=== PATIENT | female | born 1940 | race Caucasian/White ===

== ENCOUNTER 2017-10-09 13:49 | Observation (INO) | payer MEDICARE ==
[2017-10-09 14:20] LABS: ABS Basophils 0.1 10^3/ul (0-0.2); ABS Eosinophils 0.1 10^3/ul (0-0.6); ABS Lymphocytes 1.5 10^3/ul (1.0-4.8); ABS Monocytes 0.5 10^3/ul (0-0.8); ABS Neutrophils 4.5 10^3/ul (1.5-7.7); ABS Nucleated RBC 0 10^3/ul; Hematocrit 41 % (35-47); Hemoglobin 13.8 g/dl (12.0-16.0); Mean Corpuscular HGB Conc 34 g/dl (31-36); Mean Corpuscular Hemoglobin 28 pg (27-31); Mean Corpuscular Volume 82 fL (80-97); Mean Platelet Volume 8.2 um3 (7.4-10.4); Nucleated Red Blood Cells % 0; Platelet Count 219 10^3/ul (150-450); Red Blood Count 4.95 10^6/ul (4.00-5.40); Red Cell Distribution Width 16 % (10.5-15); White Blood Count 6.8 10^3/ul (3.5-10.8)
[2017-10-09 14:39] LABS: EGFR Non-African American 69.4 (>60)
--- NOTE | 2017-10-09 14:55 | RAD ---
INDICATION: Chest pain. COMPARISON: There are no relevant prior studies available for comparison. TECHNIQUE: A portable view of the chest was obtained. FINDINGS: Cardiac and mediastinal contours appear to be within normal limits. There is minimal subsegmental atelectasis at the left lung base. The lungs are otherwise clear. No pleural effusion is seen. IMPRESSION: NO EVIDENCE FOR ACUTE DISEASE.
[2017-10-09] MEDS ORDERED: Nitroglycerin 2% OINT* 1 GM PAK TOPICAL ONE (15:00)
--- NOTE | 2017-10-09 15:22 | ED ---
HPI Chest Pain - HPI Summary HPI Summary: The patient is a 77 y/o F presenting to [facility] accompanied by and son with a chief complaint of sudden onset mid-sternal chest pain that started a few hours COMBINATION WELDER and lasted for almost two hours and radiated through her chest to her back. She was sitting down eating lunch when the aching pain that felt like "an elephant on her chest" started. The pain is currently rated 0/10 in severity. She denies cough and swelling in legs. She has had stress tests in the past but hasn't had one recently. FHx of cardiac disease in her father. No Fhx of aneurysms. - History of Current Complaint Chief Complaint: EDChestPainROMI Time Seen by Provider: 10/09/17 13:59 Hx Obtained From: Patient Onset/Duration: Started Hours Ago, Resolved Timing: Constant, Lasting Hours - approx 2 hours Initial Severity: Moderate Current Severity: None Pain Intensity: 0 Pain Scale Used: 0-10 Numeric Chest Pain Location: Mid Sternal Chest Pain Radiates: Yes Chest Pain Radiates To:: Back Aggravating Factor(s): Nothing Alleviating Factor(s): Nothing Associated Signs and Symptoms: Positive: Chest Pain - mid sternal radiating to back. Negative: Cough, Edema - Allergy/Home Medications Allergies/Adverse Reactions: Allergies Allergy/AdvReac Type Severity Reaction Status Date / Time ampicillin Allergy Mild Hives Verified 10/09/17 16:09 cephalexin [From Keflex] Allergy Mild Hives Verified 10/09/17 16:09 rofecoxib Allergy Mild Hives Verified 10/09/17 16:09 Home Medications: Home Medications Aspirin EC TAB* [Ecotrin EC Low Dose 81 MG*] 1 tab PO BEDTIME 10/09/17 [History Confirmed 10/09/17] Glucosamine Sulfate Dipot Chlr [Glucosamine] 1,500 mg PO DAILY 10/09/17 [ History Confirmed 10/09/17] Silver Sulfadiazine 1% 400gm* [SILVadine 1% 400 gm jar*] 3 g TOPICAL BID [History Confirmed 10/09/17] hydrOXYzine HCL TAB* [Atarax 25 MG TAB*] 12.5 mg PO BID 10/09/17 [History Confirmed 10/09/17] PMH/Surg Hx/FS Hx/Imm Hx Endocrine/Hematology History: Denies: Hx Diabetes Cardiovascular History: Denies: Hx Myocardial Infarction - Cancer History Hx Chemotherapy: No Hx Radiation Therapy: No Infectious Disease History: No Infectious Disease History: Denies: Traveled Outside the [place] in Last 30 Days - Family History Known Family History: Positive: Cardiac Disease - in father - Social History Alcohol Use: None Substance Use Type: Reports: None Smoking Status (MU): Former Smoker Review of Systems All Other Systems Reviewed And Are Negative: No - Comments Additional Review of Systems Comments: full ros not completed: patient in extremis/STEMI Physical Exam - Summary Physical Exam Summary: Constitutional: Well-developed, Well-nourished, Alert. (-) Distressed Skin: Warm, Dry HENT: Normocephalic; Atraumatic Eyes: Conjunctiva normal Neck: Musculoskeletal ROM normal neck. (-) JVD, (-) Stridor, (-) Tracheal deviation Cardio: Rhythm regular, rate normal, Heart sounds normal; Intact distal pulses; The pedal pulses are 2+ and symmetric. Radial pulses are 2+ and symmetric. (-) Murmur Pulmonary/Chest wall: Effort normal. (-) Respiratory distress, (-) Wheezes, (-) Rales Abd: Soft, (-) epigastric tenderness, (-) Distension, (-) Guarding, (-) Rebound Musculoskeletal: (-) Edema Lymph: (-) Cervical adenopathy Neuro: Alert, Oriented x3 Psych: Mood and affect Normal Triage Information Reviewed: Yes Vital Signs On Initial Exam: Initial Vitals Temp Pulse Resp BP Pulse Ox 98.7 F 73 19 168/115 92 10/09/17 13:57 10/09/17 13:57 10/09/17 13:57 10/09/17 13:57 10/09/17 13:57 Vital Signs Reviewed: Yes Diagnostics - Vital Signs Vital Signs Temp Pulse Resp BP Pulse Ox 10/09/17 14:29 70 25 166/111 96 10/09/17 13:57 98.7 F 73 19 168/115 92 - Laboratory Lab Results: Lab Results 10/09/17 10/09/17 10/09/17 Range/Units 14:09 14:09 14:09 WBC 6.8 (3.5-10.8) 10^3/ul RBC 4.95 (4.00-5.40) 10^6/ul Hgb 13.8 (12.0-16.0) g/dl Hct 41 (35-47) % MCV 82 (80-97) fL MCH 28 (27-31) pg MCHC 34 (31-36) g/dl RDW 16 H (10.5-15) % Plt Count 219 (150-450) 10^3/ul MPV 8.2 (7.4-10.4) um3 Neut % (Auto) 66.9 (38-83) % Lymph % (Auto) 22.0 L (25-47) % Dickson % (Auto) 8.0 H (0-7) % Eos % (Auto) 2.0 (0-6) % Baso % (Auto) 1.1 (0-2) % Absolute Neuts (auto) 4.5 (1.5-7.7) 10^3/ul Absolute Lymphs (auto) 1.5 (1.0-4.8) 10^3/ul Absolute Monos (auto) 0.5 (0-0.8) 10^3/ul Absolute Eos (auto) 0.1 (0-0.6) 10^3/ul Absolute Basos (auto) 0.1 (0-0.2) 10^3/ul Absolute Nucleated RBC 0 10^3/ul Nucleated RBC % 0 Sodium 133 L (135-145) mmol/L Potassium Pending Chloride 99 L (101-111) mmol/L Carbon Dioxide 26 (22-32) mmol/L Anion Gap Pending BUN 19 (6-24) mg/dL Creatinine 0.80 (0.51-0.95) mg/dL Est GFR ( Amer) 83.9 (>60) Est GFR (Non-Af Amer) 69.4 (>60) BUN/Creatinine Ratio 23.8 H (8-20) Glucose 111 H (70-100) mg/dL Lactic Acid 1.6 (0.5-2.0) mmol/L Calcium 9.5 (8.6-10.3) mg/dL Total Bilirubin 0.30 (0.2-1.0) mg/dL AST Pending ALT 11 (7-52) U/L Alkaline Phosphatase 87 (34-104) U/L Troponin I 0.00 (<0.04) ng/mL Total Protein 6.8 (6.4-8.9) g/dL Albumin 4.1 (3.2-5.2) g/dL Globulin 2.7 (2-4) g/dL Albumin/Globulin Ratio 1.5 (1-3) Result Diagrams: 10/09/17 14:09 10/09/17 14:09 Lab Statement: Any lab studies that have been ordered have been reviewed, and results considered in the medical decision making process. - Radiology CXR Xray Interpretation: No Acute Changes - No evidence for acute disease. ED physician has reviewed this report. Radiology Interpretation Completed By: Radiologist - CT Chest/Abd/Pel CTA CT Interpretation: No Acute Changes - No evidence of thoracic aortic dissection or thoracic or aortic aneurysm. Atherosclerotic aorta without evidence of aneurysmal dilatation. No definite evidence of pulmonary embolus is noted. ED physician has reviewed this report. CT Interpretation Completed By: Radiologist - EKG 14:09 Cardiac Rate: NL - 69 BPM EKG Rhythm: Sinus Rhythm EKG Interpretation: No STEMI. Re-Evaluation - Re-Evaluation First Eval Re-Evaluation Time: 17:00 Change: Unchanged Comment: I spoke with patient about lab and imaging results. She understands the need for admission and agrees with this plan. Chest Pain Course/Dx - Course Course Of Treatment: The patient is a 77 y/o F presenting to [facility] accompanied by and son with a chief complaint of sudden onset mid- sternal chest pain that started a few hours COMBINATION WELDER and lasted for almost two hours and radiated through her chest to her back. She was sitting down eating lunch when the aching pain that felt like "an elephant on her chest" started. The pain is currently rated 0/10 in severity. She denies cough and swelling in legs. She has had stress tests in the past but hasn't had one recently. FHx of cardiac disease in her father. No Fhx of aneurysms. Physical exam benign. In the ED course, the pt was administered NTG and Iohexol. Lab results are unremarkable. EMS EKG is normal. ED EKG is normal. Chest/Abd/Pel CTA shows negative findings. CXR reveals negative findings. Patient will be diagnosed with unspecified chest pain. Patient will be admitted to [facility] for further evaluation by Dr. Jimenez at 1745. Patient understands the need for admission and agrees to this plan. - Diagnoses Provider Diagnoses: Chest pain, unspecified - Provider Notifications Discussed Care Of Patient With: Anjel Jimenez Time Discussed With Above Provider: 17:45 Instructed by Provider To: Admit As Observation - Patient will be admitted to [facility] for further evaluation. Discharge - Sign-Out/Discharge Documenting (check all that apply): Patient Departure - Patient will be admitted to [facility] for further evaluation. - Discharge Plan Condition: Stable Disposition: ADMITTED TO [facility] - Billing Disposition and Condition Condition: STABLE Disposition: Admitted to [facility] - Attestation Statements Document Initiated by Scribe: Yes Documenting Scribe: Andreina Deleon Provider For Whom Scribe is Documenting (Include Credential): Jon Matute MD Scribe Attestation: Andreina Montaño, scribed for Jon Matute MD on 10/09/17 at 1840. Scribe Documentation Reviewed: Yes Provider Attestation: The documentation as recorded by the Andreina ahn accurately reflects the service I personally performed and the decisions made by me, Jon Matute MD
[2017-10-09] MEDS ORDERED: Iohexol 350* (CONTRAST) 500 ML MDV IV ONE (15:24)
--- NOTE | 2017-10-09 16:55 | RAD ---
Indication: Chest pain. Contrast:Administered 100.0 ml of OMNIPAQUE 350 mg/ml CTA of the chest, abdomen and pelvis was performed after IV contrast administration. Coronal and sagittal reconstructed images were obtained. The origins of the great vessels are unremarkable. Mild atherosclerosis of the aorta is noted. There is no aneurysmal dilatation of the aorta. No evidence of thoracic aortic dissection is noted. The pulmonary arterial tree demonstrates no filling defect to suggest pulmonary embolus. Minimal atherosclerosis is noted in the upper abdominal aorta. Celiac axis, superior mesenteric artery and bilateral renal arteries appear patent. Inferior mesenteric artery is patent. Mild atherosclerosis and minimal plaque is noted in the distal abdominal aorta. No evidence of aneurysmal dilatation of the abdominal aorta is noted. Common iliac and external iliac arteries are grossly unremarkable without evidence of aneurysmal dilatation. The thyroid demonstrates retrosternal component of the left lobe of the thyroid. Small 3 to 5 mm pretracheal and AP window lymph nodes are noted. The heart demonstrates no pericardial effusion. There are likely coronary artery calcifications noted. The axilla demonstrates no evidence of abnormal adenopathy. Bilateral breast implants are noted. The lung marte demonstrate emphysematous changes in the left apex. No evidence of alveolar consolidation is noted. Small nodule measuring 3 to 4 mm is noted in the inferior right upper lobe. This is likely not clinically significant. Scarring is noted in the anterior lingula. No pleural fluid is identified. The liver is normal in size. No focal lesions or intrahepatic duct dilatation is noted. Gallbladder demonstrates no calcified gallstones. Pancreas demonstrates no mass or pancreatic duct dilatation. Common duct is not dilated. The spleen is normal in size. No adrenal lesions are noted. The kidneys demonstrate symmetric nephrograms without hydronephrosis. CT of the pelvis demonstrates no pelvic adenopathy. No dilated loops of bowel are noted. The uterus and ovaries are unremarkable. The urinary bladder is unremarkable. Patient status post left hip replacement. Degenerative changes of the thoracic and lumbar spine are noted. IMPRESSION: No evidence of thoracic aortic dissection or thoracic or aortic aneurysm. Atherosclerotic aorta without evidence of aneurysmal dilatation. No definite evidence of pulmonary embolus is noted.
[2017-10-09] MEDS ORDERED: Al Hydrox/Mg Hydrox/Simet LIQ* 30 ML UDC PO PRN (18:05)
[2017-10-09] MEDS ORDERED: Magnesium Hydroxide LIQ* 30 ML UDC PO PRN (18:05)
[2017-10-09] MEDS ORDERED: Temazepam CAP* 15 MG PO PRN (18:05)
--- NOTE | 2017-10-09 20:03 | HP ---
CC: Dr. Sally Evans * HISTORY AND PHYSICAL: DATE OF ADMISSION: 10/09/17 PRIMARY CARE PROVIDER: Dr. Sally Evans. CHIEF COMPLAINT: Chest pain. HISTORY OF PRESENT ILLNESS: Milagros Alva is a 77-year-old female with history of TIA and hypertension, who presented to [facility] complaining of chest pain. The patient stated that chest pain occurred at around noon when she was eating a turkey sandwich. She stated that it was moderate in intensity , pressure that was substernal, radiating to the back, lasting approximately 1 hour. She denies any aggravating or alleviating factors. The pain resolved spontaneously. She denies any shortness of breath with it. Once again, there were no other symptoms. The patient stated that she never had a similar pain before. By the time she presented to the emergency department, the chest pain resolved. Her EKG was unremarkable and troponin negative. She was advised by the ED physician to stay overnight for a cardiac stress test, which is going to be performed in the morning. PAST MEDICAL HISTORY: 1. Status post left total hip replacement in April of 2017 at [facility]. 2. History of ulcerative colitis. 3. History of right oophorectomy for ovarian cyst in 1960s. 4. History of hospitalization for septic shock in 2009, at which time the patient had exploratory laparotomy and "lot of infected fluid was removed from her stomach." The patient stated that the source of sepsis was never found out. 5. History of hypertension. 6. History of TIA. MEDICATIONS: At home, include: 1. Hydroxyzine 12.5 mg b.i.d. 2. Metoprolol succinate 50 mg daily. 3. Hiprex 1 g daily. 4. Lisinopril 20 mg daily. 5. Prevacid SoluTab 15 mg daily. 6. Glucosamine 1500 mg daily. 7. Plavix 75 mg daily. 8. Aspirin 81 mg daily. 9. Elavil 25 mg at bedtime. ALLERGIES: KEFLEX, AMPICILLIN, and VIOXX. FAMILY HISTORY: Positive for both parents dying in their 90s. Father secondary to Parkinson's disease and he had history of DE earlier on in his life , but the patient does not remember exactly when. Mother at the age of 96 secondary to "old age." SOCIAL HISTORY: The patient is retired, lives with her who is her surrogate. She denies any alcohol or drug use. She had used tobacco many years ago, not a significant amount of years though. She ambulates without any support and she is fully independent. REVIEW OF SYSTEMS: Please see history of present illness. All the remaining 12 systems were reviewed with the patient and were otherwise negative. PHYSICAL EXAMINATION GENERAL: The patient is a very pleasant 77-year-old female, who is in no acute distress. Alert, awake, and oriented x3. VITAL SIGNS: Blood pressure of 135/91, heart rate of 75 and regular, respiratory rate 16, oxygen saturation 97% on room air, temperature of 98.7. HEENT: Head: Atraumatic, normocephalic. Eyes: Pupils are equal, reactive to light and accommodation. Oropharynx is clear. Mucosa moist. NECK: Supple. No JVD. No bruits bilaterally. RESPIRATORY: Clear to auscultation bilaterally. CARDIOVASCULAR: Regular rate and rhythm. No murmur. ABDOMEN: Soft, nontender. Bowel sounds are present in all 4 quadrants. EXTREMITIES: There is no edema. Pulses are +2 bilaterally. There is no clubbing or cyanosis. NEUROLOGIC: Speech is clear. Cranial nerves II through XII are grossly intact. Motor strength is 5/5 bilaterally. PSYCHIATRIC: Oriented x3 with no evidence of anxiety or depression. DIAGNOSTIC STUDIES/LAB DATA: Showed sodium of 133, potassium 4.2, chloride 99 , carbon dioxide 26, BUN 19, creatinine 0.8. Liver function tests unremarkable. Troponin of 0 twice already. White blood cell count of 6.8, hemoglobin of 13.8, hematocrit of 41, and platelets of 219. The patient's EKG showed normal sinus rhythm with no evidence of ST elevations. CT angiogram of chest, abdomen, and pelvis showed "no evidence of thoracic aortic dissection or thoracic aortic aneurysm. Atherosclerotic aorta without evidence of aneurysm or dilatation. No definite evidence of pulmonary embolus is noted." Furthermore, in the body of the report, it was noted that the patient has a small nodule measuring 3 to 4 mm in the inferior right upper lobe that was likely not clinically significant. ASSESSMENT AND PLAN: 1. Chest pain. So far, the patient's cardiac workup is unremarkable. The patient is going to be observed on telemetry monitored bed with a stress test in the morning if her troponins continued to be negative. I will also obtain EKG in the morning for followup. 2. For the patient's history of transient ischemic attack, aspirin and Plavix are going to be continued. 3. For history of hypertension, lisinopril and metoprolol are going to be continued. 4. For DVT prophylaxis, the patient is going to be placed on heparin subcutaneously. 5. The patient's code status is full. Her surrogate is her . TIME SPENT: Approximately 55 minutes was spent on admission of this patient, more than half of that time was spent [id number] with the patient during the interview and physical exam. [id number]/[facility] #: [id number] ARBEN
[2017-10-09] MEDS ORDERED: hydrOXYzine HCL TAB* 25 MG PO SCH (21:00)
[2017-10-09] MEDS ORDERED: Aspirin EC TAB* 81 MG TAB.EC PO SCH (21:00)
[2017-10-09] MEDS ORDERED: Amitriptyline TAB* 25 MG PO SCH (21:00)
[2017-10-09] MEDS: Heparin VIAL(*) 5000 UNITS/ML VIAL (FIVE THOUSAND) SUBCUT SCH (21:28)
[2017-10-10] MEDS ORDERED: Acetaminophen TAB* 325 MG PO PRN (01:02)
[2017-10-10] MEDS: Heparin VIAL(*) 5000 UNITS/ML VIAL (FIVE THOUSAND) SUBCUT SCH (05:20)
[2017-10-10 07:27] VITALS: BP 122/74
[2017-10-10] MEDS ORDERED: Methenamine Hippurate TAB* 1 GM TAB PO SCH (09:00)
[2017-10-10] MEDS ORDERED: Lisinopril TAB* 10 MG PO SCH (09:00)
[2017-10-10] MEDS ORDERED: Clopidogrel TAB* 75 MG PO SCH (09:00)
[2017-10-10] MEDS ORDERED: Lansoprazole susp Kit 3 MG/ML (15 MG = 5 ML) PO SCH (09:00)
--- NOTE | 2017-10-10 11:06 | RAD ---
HISTORY: CP chest pain COMPARISONS: None TECHNIQUE: A 1 day stress/rest myocardial perfusion study was performed, with exercise stress. The exercise portion was performed using the Venkatesh protocol, for a total METs of 4.6 . The stress portion was monitored by Dr. Jacinto. Gated SPECT imaging was performed, with CT-based attenuation correction DOSE: Stress: Technetium 99m tetrofosmin, 24.9 millicuries, injected at 9:50 AM on October 10, 2017 Rest: Technetium 99m tetrofosmin, 10.9 millicuries, injected at 7:00 AM on October 10, 2017 Pharmacologic agent: None FINDINGS: CARDIAC MONITORING: Peak heart rate of 149 bpm, 105% of predicted. EF: 96 % TID: 1.16 MOTION: Normal motion, with normal wall thickening. PERFUSION: There are no fixed or reversible perfusion defects. The small reversible defect along the base of the lateral wall is felt to be likely artifactual. OTHER: None IMPRESSION: NO DEFINITE FIXED OR REVERSIBLE PERFUSION DEFECT. ASSESSMENT: LOW RISK. Based on imaging criteria from ACC/AHA 2002. Guideline Update for the Management of Patient's with Chronic Stable Angina, table 23. Noninvasive Risk Stratification.
--- NOTE | 2017-10-11 01:18 | DS ---
CC: Dr. Evans * DISCHARGE SUMMARY: DATE OF ADMISSION: 10/09/17 DATE OF DISCHARGE: 10/10/17 PRIMARY CARE PROVIDER: Dr. Sally Evans. DISCHARGE DIAGNOSIS: Chest pain with low probability cardiac stress test documented on 10/10/17. MEDICATIONS AT DISCHARGE: Include: 1. Amitriptyline 25 mg at bedtime. 2. Aspirin 81 mg daily. 3. Plavix 75 mg daily. 4. Glucosamine 1500 mg daily. 5. Atarax 12.5 mg b.i.d. 6. Prevacid SoluTab 15 mg daily. 7. Lisinopril 20 mg daily. 8. Hiprex 1 g daily. 9. Metoprolol succinate 50 mg daily. LABORATORY DATA AND STUDIES PERFORMED DURING THE HOSPITAL STAY: Included: The patient's troponin continued to be 0 throughout the patient's hospital stay. The patient's nuclear cardiac stress test is documented on 10/10/17, impression : "Low risk. There was no definite or fixed reversible perfusion defect." The EF was noted to be 96%. There was small reversible defect around the base of the lateral wall that was felt to be likely artifactual. PHYSICAL EXAM AT DISCHARGE: Unchanged from admission. FOLLOWUP: At discharge, the patient is recommended to follow up with Dr. Evans in approximately 1 week. HOSPITALIZATION COURSE: Mrs. Alva is a 77-year-old female, who presented with substernal chest pain radiating to the back when she was eating a turkey sandwich. The pain lasted approximately 1 hour, was "pressure-like" and resolved spontaneously. She came into the ED for evaluation where her EKG was unremarkable and her troponins continued to be negative. A stress test performed the next day showed low probability for cardiac ischemia. The patient is going to be discharged home with recommendations to follow up as mentioned above. Please note that this is a short summary of the patient's hospital stay. Please refer to further medical records for details. [id number]/[facility] #: [id number] [facility]
== END 2017-10-10 13:30 | disposition home or self-care (01) ==
LOC: ED 13:49 → MEDTELE 18:23
PROVIDERS: ADMIT Internal Medicine; ATTEND Internal Medicine
DX: R07.9 Chest pain, unspecified (principal); Z87.891 Personal history of nicotine dependence; Z79.82 Long term (current) use of aspirin; Z96.642 Presence of left artificial hip joint; Z87.19 Personal history of other diseases of the digestive system; Z90.722 Acquired absence of ovaries, bilateral; I10 Essential (primary) hypertension; Z86.73 Personal history of transient ischemic attack (TIA), and cerebral infarction without residual deficits
CPT/HCPCS: 36415; 71045; 71275; 74174; 78452; 80053; 83605; 84484; 85025; 93005; 93017; 99284; A9270-GY; A9502; G0378; Q9967

== ENCOUNTER 2022-03-20 16:41 | Inpatient (IN) ==
[2022-03-20 18:47] LABS: ABS Basophils 0.1 10^3/ul (0-0.2); ABS Eosinophils 0.2 10^3/ul (0-0.6); ABS Lymphocytes 1.6 10^3/ul (1.0-4.8); ABS Monocytes 0.7 10^3/ul (0-0.8); ABS Neutrophils 4.1 10^3/ul (1.5-7.7); Eosinophil % 3.4 %; Hematocrit 39 % (35-47); Hemoglobin 12.3 g/dL (12.0-16.0); Mean Corpuscular HGB Conc 32 g/dL (31-36); Mean Corpuscular Hemoglobin 25 pg (27-31); Mean Corpuscular Volume 80 fL (80-97); Mean Platelet Volume 8.6 fL (7.4-10.4); Platelet Count 223 10^3/uL (150-450); Red Blood Count 4.86 10^6 /uL (3.70-4.87); Red Cell Distribution Width 16 % (10-15); White Blood Count 6.6 10^3/uL (3.5-10.8)
[2022-03-20 18:57] LABS: Activated Partial Thrombo Time 28.2 seconds (26.0-38.0); INR 1.05 (0.88-1.18)
[2022-03-20 19:04] LABS: Albumin 4.3 g/dL (3.2-5.2); Albumin/Globulin Ratio 1.8 (1-3); Calcium 9.8 mg/dL (8.6-10.3); Creatinine, Serum 0.7 mg/dL (0.51-0.95); Globulin 2.4 g/dL (2-4); Potassium 4.3 mmol/L (3.5-5.0); Total Bilirubin 0.4 mg/dL (0.2-1.0); Total Protein 6.7 g/dL (6.4-8.9); eGFR CKD-EPI 85.8 (>60)
[2022-03-20] MEDS ORDERED: Ondansetron 4 mg VIAL 2 MG/ML 2 ml VIAL IV PRN (19:50)
[2022-03-20] MEDS ORDERED: Morphine 2 MG/ML SYRINGE IV PRN (20:30)
[2022-03-20] MEDS: Ciproflox/Dexameth OTIC.SUSP 7.5 ML BTL RIGHT EAR SCH (21:36)
[2022-03-20] MEDS ORDERED: Heparin 5000 UNITS/ML 1 mL VIAL SUBCUT SCH (23:00)
[2022-03-21] MEDS ORDERED: Lactated Ringers 1000 ml BAG 1,000 ML IV ONE (04:46)
[2022-03-21 06:14] LABS: ABS Basophils 0.1 10^3/ul (0-0.2); ABS Eosinophils 0.3 10^3/ul (0-0.6); ABS Lymphocytes 1.7 10^3/ul (1.0-4.8); ABS Monocytes 0.6 10^3/ul (0-0.8); ABS Neutrophils 3.2 10^3/ul (1.5-7.7); Eosinophil % 4.7 %; Hematocrit 37 % (35-47); Hemoglobin 12.2 g/dL (12.0-16.0); Mean Corpuscular HGB Conc 33 g/dL (31-36); Mean Corpuscular Hemoglobin 26 pg (27-31); Mean Corpuscular Volume 79 fL (80-97); Mean Platelet Volume 8.8 fL (7.4-10.4); Platelet Count 202 10^3/uL (150-450); Red Blood Count 4.69 10^6 /uL (3.70-4.87); Red Cell Distribution Width 16 % (10-15); White Blood Count 5.9 10^3/uL (3.5-10.8)
[2022-03-21 06:33] LABS: Calcium 9.3 mg/dL (8.6-10.3); Creatinine, Serum 0.71 mg/dL (0.51-0.95); Potassium 4.2 mmol/L (3.5-5.0); eGFR CKD-EPI 84.3 (>60)
[2022-03-21 07:47] LABS: Urine Appearance Cloudy; Urine Bilirubin Negative (Negative); Urine Blood Negative (Negative); Urine Color Yellow; Urine Glucose Negative (Negative); Urine Ketones Negative (Negative); Urine Nitrite Negative (Negative); Urine Protein Negative (Negative); Urine Specific Gravity 1.017 (1.002-1.030); Urine Urobilinogen Negative (Negative)
[2022-03-21 07:59] LABS: Urine Bacteria Absent (Absent); Urine Red Blood Cell Trace(0-2/hpf) (Absent); Urine Squamous Epithelial Cell Present (Absent); Urine White Blood Cell 1+(6-10/hpf) (Absent)
[2022-03-21] MEDS: Ciproflox/Dexameth OTIC.SUSP 7.5 ML BTL RIGHT EAR SCH ×2 (09:08→21:24)
[2022-03-21] MEDS ORDERED: ceFAZolin 2 GM PREMIX 0 GM/0 ML BAG ONE (12:10)
[2022-03-21] MEDS ORDERED: fentaNYL 100 mcg/2 ml 50 MCG/ML VIAL ONE (12:22)
[2022-03-21] MEDS ORDERED: Ondansetron 4 mg VIAL 2 MG/ML 2 ml VIAL ONE (12:24)
[2022-03-21] MEDS ORDERED: Acetaminophen IV 1 GM/100ML 1,000 MG/100 ML BAG IV ONE (12:24)
[2022-03-21] MEDS ORDERED: Midazolam 2 mg/2 ml VIAL 1 mg/ml 2 ml VIAL (2 mg) ONE (12:24)
[2022-03-21] MEDS ORDERED: Dexamethasone IV 4 MG/ML VIAL 1 ml VIAL ONE (12:24)
[2022-03-21] MEDS ORDERED: Lidocaine 2% PF 5 ML VIAL ONE (12:24)
[2022-03-21] MEDS ORDERED: Rocuronium 50 mg VIAL 10 mg/ml 5 ml VIAL (50 mg) ONE (12:26)
[2022-03-21] MEDS ORDERED: ROPIVACAINE 5 MG/ML 30 ML BTL (0.5%) ONE (12:32)
[2022-03-21] MEDS ORDERED: Clindamycin 900 MG/D5W BAG 900 MG/50 ML BAG IVPB ONE (13:07)
[2022-03-21] MEDS ORDERED: Etomidate 20 mg/10 ml 2 MG/ML 10 ml VIAL ONE (13:19)
[2022-03-21] MEDS ORDERED: Naloxone 0.4 mg VIAL 0.4 mg/ml 1 ml VIAL IV PRN (13:50)
[2022-03-21] MEDS ORDERED: fentaNYL 100 mcg/2 ml 50 MCG/ML VIAL IV PRN (13:50)
[2022-03-21] MEDS ORDERED: Prochlorperazine 5 mg/ml 2 ml VIAL (10 mg) IV PRN (13:50)
[2022-03-21] MEDS ORDERED: Morphine 10 MG/ML VIAL (1 ml) ONE (14:02)
[2022-03-21] MEDS: Clindamycin 600 MG/D5W BAG IV SCH (21:27)
[2022-03-22] MEDS: Clindamycin 600 MG/D5W BAG IV SCH ×2 (05:38→13:48)
[2022-03-22 05:51] LABS: ABS Lymphocytes 0.6 10^3/ul (1.0-4.8); ABS Monocytes 0.9 10^3/ul (0-0.8); Hematocrit 33 % (35-47); Hemoglobin 10.6 g/dL (12.0-16.0); Lymphocyte % 6.1 %; Mean Corpuscular HGB Conc 33 g/dL (31-36); Mean Corpuscular Hemoglobin 26 pg (27-31); Mean Corpuscular Volume 79 fL (80-97); Mean Platelet Volume 8.7 fL (7.4-10.4); Platelet Count 197 10^3/uL (150-450); Red Blood Count 4.12 10^6 /uL (3.70-4.87); Red Cell Distribution Width 16 % (10-15); White Blood Count 9.5 10^3/uL (3.5-10.8)
[2022-03-22 06:07] LABS: Creatinine, Serum 0.76 mg/dL (0.51-0.95); Potassium 4.5 mmol/L (3.5-5.0); eGFR CKD-EPI 77.7 (>60)
[2022-03-22] MEDS: Ciproflox/Dexameth OTIC.SUSP 7.5 ML BTL RIGHT EAR SCH ×2 (10:44→22:30)
[2022-03-22] MEDS: Enoxaparin 40 MG/0.4 ML SYR SUBCUT SCH (11:59)
[2022-03-22] MEDS ORDERED: Polyethylene Glycol 3350 17 GM PACKET PO PRN (21:33)
[2022-03-22] MEDS: Magnesium Hydroxide LIQ 30 ML UDC PO PRN (23:24)
[2022-03-23] MEDS: Ciproflox/Dexameth OTIC.SUSP 7.5 ML BTL RIGHT EAR SCH (08:09)
[2022-03-23] MEDS: Magnesium Hydroxide LIQ 30 ML UDC PO PRN (08:11)
[2022-03-23] MEDS: Enoxaparin 40 MG/0.4 ML SYR SUBCUT SCH (11:59)
[2022-03-23 15:23] VITALS: BP 107/63
[2022-03-23 15:43] LABS: Rapid COVID-19 Molecular Undetected (Undetected)
== END 2022-03-23 17:00 | disposition swing bed (61) | DRG 522 ==
LOC: ED 16:41 → SUATTDRO 19:08 → EDHOLD 19:08 → SSU 03-21 01:11
PROVIDERS: ADMIT Internal Medicine; ATTEND Hospitalist